=== PATIENT | female | born 1955 | race African-American/Black ===

== ENCOUNTER 2024-11-19 15:32 | Emergency (ER) | payer BC ==
[2024-11-19] MEDS ORDERED: Adenosine 6 mg (2 mL) VIAL ONE (15:43)
[2024-11-19 16:06] LABS: Hematocrit 41.4 % (36.0-47.0); Hemoglobin 14.4 g/dL (12.0-16.0); Mean Corpuscular Hemoglobin 26.7 pg (27.0-31.0); Mean Corpuscular Volume 76.7 fl (78.0-98.0); Platelet Count 465 10x3/uL (130-400); Red Blood Cell (RBC) Count 5.40 mill/uL (4.20-5.40); White Blood Cell (WBC) Count 9.5 10x3/uL (4.8-10.8)
[2024-11-19 16:09] LABS: INR-International Normal Ratio 1.0; Prothrombin Time 12.9 sec (12.0-14.7)
[2024-11-19 16:10] LABS: PTT 29.4 sec (22.9-36.1)
[2024-11-19 16:17] LABS: ALT (SGPT) Less than 7 U/L (Less than 34); AST (SGOT) 13 U/L (11-34); Albumin 3.9 g/dL (3.1-4.5); Alkaline Phosphatase 77 U/L (40-110); Anion Gap 19 mmol/L (10-20); BUN (Urea Nitrogen) 10 mg/dL (9.8-20.1); Bilirubin, Total 0.4 mg/dL (0.3-1.2); Calc. Creatinine Clearance 0 mL/min (70-130); Calcium 9.6 mg/dL (7.8-10.44); Carbon Dioxide 18 mmol/L (23-31); Chloride 107 mmol/L (98-107); Globulin 3.0 g/dL (2.4-3.5); Glucose 133 mg/dL (80-115); Magnesium 2.2 mg/dL (1.6-2.6); Potassium 3.8 mmol/L (3.5-5.1); Sodium 140 mmol/L (136-145)
[2024-11-19 16:18] LABS: Troponin I Less than 0.010 ng/mL (< 0.028)
[2024-11-19 16:19] LABS: MDiff Complete? YES
[2024-11-19 16:34] LABS: Glucose, Urine (Dipstick) Negative (Negative); Leukocyte Moderate (Negative); Protein, Urine (Dipstick) Negative (Neg-Trace); Specific Gravity, Urine Less/Equal 1.005 (1.005-1.030)
[2024-11-19 16:42] LABS: Bacteria/HPF 1+ HPF (None Seen); CAUTI Indications for Culture Dysuria,urgency,freq; RBC/HPF 0-3 HPF (0-3)
[2024-11-19 16:44] LABS: Urine Culture Reflex Yes Yes
[2024-11-19] MEDS ORDERED: cefTRIAXone (ROCEPHIN) 1 GM VIAL ONE (16:57)
== END 2024-11-19 18:45 | disposition home or self-care (01) ==
LOC: BURERS 15:32
DX: I47.10 Supraventricular tachycardia, unspecified (principal); I10 Essential (primary) hypertension; Z79.82 Long term (current) use of aspirin; Z79.899 Other long term (current) drug therapy
CPT/HCPCS: 36415; 71045; 80053; 81001; 83605; 83735; 83880; 84484; 85025; 85610; 85730; 87086; 93005; 94760; 96365; 96375; J0153; J0696